=== PATIENT | female | born 1970 | race Caucasian/White ===

== ENCOUNTER → 2020-07-25 | Outpatient (CLI) | payer OTHER ==
[~2020-07-25] MED LIST: OMEPRAZOLE20 M2 PO; ONDANSETRON ODT4 MG PO
== END ==
LOC: KOH-I 09:10
DX: R11.2 Nausea with vomiting, unspecified (principal); R90.89 Other abnormal findings on diagnostic imaging of central nervous system
CPT/HCPCS: 70551

== ENCOUNTER → 2020-09-03 | Outpatient (CLI) | payer OTHER | LOC: KOH-I 16:31 | DX: R05 Cough (principal); G93.9 Disorder of brain, unspecified | CPT/HCPCS: 71046 ==